=== PATIENT | male | born 1990 | race Two or more races ===

== ENCOUNTER 2024-10-30 17:14 | Emergency (ER) | payer OTHER ==
[~2024-10-30] VITALS: Ht 170.2 cm; Wt 113.6 kg
--- NOTE | 2024-10-30 19:05 | Physician Documentation ---
History of Present Illness ~ Chief Complaint: Leg Pain Stated Complaint: R LEG PAIN Time Seen by MD: 18:06 HPI Patient is seen today with complaints of acute pain in his right leg yesterday while he was jogging. He states he felt a rip and tear in his calf muscle and now is having difficulty with plantar flexion and pain as well as pain with walking. Patient has no other concern or complaint at this time. Medication Reconciliation Allergies: Coded Allergies: No Known Allergies (Unverified , 10/30/24) Review of Systems Constitutional: Denies: chills, fever, weakness Eyes: Denies: pain, blurred vision ENT: Denies: ear pain, nose pain, throat pain, mouth pain Respiratory: Denies: cough, shortness of breath Cardiovascular: Denies: chest pain, palpitations Gastrointestinal: Denies: abdominal pain, nausea, vomiting Genitourinary: Denies: burning, dysuria Male Genitalia: Denies: penile discharge, testicular pain Neurological: Denies: headache, dizziness Musculoskeletal: Denies: pain, swelling Integumentary: Denies: rash, lesions Allergic/Immunologic: Denies: hives, itching Hematologic/Lymphatic: Denies: no symptoms reported Psychiatric: Denies: depression, anxiety Physical Exam Vital Signs: Temperature: 97.5, Source: Temporal, Heart Rate: 96, Respiratory Rate: 18, BP: 144/86, Pulse Oximetry: 99, Weight: 113.640 Oxygen Flow Rate: 0 Physical Exam General: Awake and Alert, no acute distress. HEENT: Conjunctiva pink, Sclera clear, Mucus Membranes moist. Neck: Supple without masses and tenderness. Resp: Unlabored. Lungs clear to auscultation bilaterally. Heart: Regular Rate and rhythm, normal S1 and S2 without murmur, rub or gallop. Musculoskeletal: Patient on exam does have significant tenderness to palpation of the posterior aspect of the proximal gastrocnemius and has no appreciable defect or tenderness to palpation of the Achilles tendon on the right side. Patient does have mild edema or 1+ pitting edema of the bilateral lower extremities slightly worse in the right side. Patient is neurovascularly intact distally. Motor function intact distally. Range of motion and strength decreased due to pain. Extremities: No cyanosis,clubbing or edema. Skin: Warm and Dry. Progress Results/Orders Results/Orders Orders - CHRISTOPH HORTON PAC Vl Venous (10/30/24 19:07) Completed Orders - CHRISTOPH HORTON PAC Ketorolac Trometh 30mg/Ml Vial (Toradol (10/30/24 19:06) Vl Venous (10/30/24 19:07) Medications Received in ER Medications (Trade) Dose Ordered Sig/Sarai Route PRN Reason Start Time Stop Time Status Last Admin Dose Admin (Toradol inj. 30mg/ml) 30 mg ONCE STAT IM 10/30/24 19:06 10/30/24 19:08 DC 10/30/24 19:16 30 MG Vital Signs 10/30/24 10/30/24 17:38 19:16 Temp 97.5 Pulse 96 Resp 18 17 B/P (MAP) 144/86 Pulse Ox 99 O2 Flow Rate 0 EKG/XRAY/CT/US/VASC/MRI Ultrasound : Impression VASCULAR Patient: JUNIOR Rebecca BELTRAN Medical Record: [id number] [facility] 1990, Age: 34 Sex: M Location: ER Patient Status: [facility] ER Service Date/Time: 10/30/241906 Ordering Physician: CHRISTOPH HORTON PAC Exam Name: VENOUS Technologist: Andrea Lamb RIGHT LOWER EXTREMITY VENOUS DOPPLER ULTRASOUND CLINICAL HISTORY: Right lower extremity pain status post trauma 2 days ago. TECHNIQUE: Grayscale ultrasound with compression, color Doppler flow imaging with pulsed duplex sonography of the right lower extremity deep venous system from the common femoral veins through the popliteal veins is performed. COMPARISON: None FINDINGS: Right common femoral vein: Negative. Right greater saphenous vein: Negative. Right deep femoral vein: Negative. Right femoral vein: Negative. Right popliteal vein: Negative. Left common femoral vein: Negative. Other: Visualized right peroneal and posterior tibial veins demonstrate color flow as well.. IMPRESSION: No sonographic evidence of deep venous thrombosis in the right lower extremity at this time. Dictated by:EMIR NOBLE MD Dictation date and time:10/30/242056 Electronically Signed by: EMIR NOBLE MD Date and Time: 10/30/242056 Transcribed: [email or web address] Transcribed: NO PRIMARY CARE PROVIDER~ cc: CHRISTOPH HORTON; EMIR NOBLE MD ~ Medical Decision Making Findings Patient is seen today with complaints of acute pain in his right leg yesterday while he was jogging. He states he felt a rip and tear in his calf muscle and now is having difficulty with plantar flexion and pain as well as pain with walking. Patient has no other concern or complaint at this time. Patient did have ultrasound done of the right lower extremity that showed no sign of DVT. Patient will perform activity modification and take Tylenol ibuprofen as needed for symptomatic relief. Patient was given Toradol 30 mg IM in the ED today. Patient will follow up with ortho in 3-5 days if no better as needed sooner. Return to ED with any worsening, concerning or changing symptoms. Departure Disposition: HOME / SELF CARE / HOMELESS Impression: Primary Impression: Muscle strain Condition: Stable Discharge Instructions: Muscle Strain, [id number], RICE Therapy for Routine Care of Injuries, [id number] Additional Instructions: Patient did have ultrasound done of the right lower extremity that showed no sign of DVT. Patient will perform activity modification and take Tylenol ibuprofen as needed for symptomatic relief. Patient was given Toradol 30 mg IM in the ED today. Patient will follow up with ortho in 3-5 days if no better as needed sooner. Return to ED with any worsening, concerning or changing symptoms. Referrals: NO PRIMARY CARE PROVIDER (PCP) Signature Scribe Signature: No scribe Attestation: No scribe CHRISTOPH HORTON Oct 30, 2024 19:05
[2024-10-30] MEDS: ketorolac trometh 30MG/ML vial 30 MG/ML VIAL IM STA (19:16)
--- NOTE | 2024-10-30 21:00 | VASCULAR REPORT ---
RIGHT LOWER EXTREMITY VENOUS DOPPLER ULTRASOUND CLINICAL HISTORY: Right lower extremity pain status post trauma 2 days ago. TECHNIQUE: Grayscale ultrasound with compression, color Doppler flow imaging with pulsed duplex sonog aura of the right lower extremity deep venous system from the common femoral veins through the popli teal veins is performed. COMPARISON: None FINDINGS: Right common femoral vein: Negative. Right greater saphenous vein: Negative. Right deep femoral vein: Negative. Right femoral vein: Negative. Right popliteal vein: Negative. Left common femoral vein: Negative. Other: Visualized right peroneal and posterior tibial veins demonstrate color flow as well.. IMPRESSION: No sonographic evidence of deep venous thrombosis in the right lower extremity at this time.
[2024-10-30 22:10] VITALS: BP 140/80; PULSE 92; RESP 18; TEMP 98.6; O2SAT 99
== END 2024-10-30 22:11 | disposition home or self-care (01) ==
LOC: ER 17:16
DX: S86.811A Strain of other muscle(s) and tendon(s) at lower leg level, right leg, initial encounter (principal); X58.XXXA Exposure to other specified factors, initial encounter; Y93.01 Activity, walking, marching and hiking; Y92.89 Other specified places as the place of occurrence of the external cause; Y99.8 Other external cause status
CPT/HCPCS: 93971; 96372; 99285; J1885; A6449